=== PATIENT | female | born 1955 | race Caucasian/White ===

== ENCOUNTER 2023-11-09 07:20 | Day surgery (SDC) | payer MEDICARE, OTHER ==
[2023-11-09] MEDS ORDERED: Lidocaine 2% 5 ML SDV IV ONE (07:21)
[2023-11-09] MEDS ORDERED: Propofol 200 MG/20 ML SDV IV ONE (07:21)
[2023-11-09] MEDS ORDERED: Lactated Ringers 1,000 ML IV SCH (07:30)
[2023-11-09] MEDS ORDERED: Sodium Chloride 0.9% 10 ML Syringe FLUSH PRN (07:30)
[2023-11-09] MEDS ORDERED: Simethicone Drops 40 MG/0.6 ML 30 ML Bottle ONE (09:03)
== END 2023-11-09 10:24 | disposition home or self-care (01) ==
LOC: FB.SDS 07:20
PROVIDERS: ATTEND Surgery
DX: Z12.11 Encounter for screening for malignant neoplasm of colon (principal); D12.6 Benign neoplasm of colon, unspecified; D12.8 Benign neoplasm of rectum; K57.30 Diverticulosis of large intestine without perforation or abscess without bleeding; I10 Essential (primary) hypertension; E11.9 Type 2 diabetes mellitus without complications; F32.A Depression, unspecified; K21.9 Gastro-esophageal reflux disease without esophagitis; Z79.84 Long term (current) use of oral hypoglycemic drugs; Z79.82 Long term (current) use of aspirin; Z79.899 Other long term (current) drug therapy; Z88.0 Allergy status to penicillin; Z88.1 Allergy status to other antibiotic agents
CPT/HCPCS: 00811; 82947; 88305; A9270-GY; J2704; J7120